=== PATIENT | female | born 1955 | race Hispanic/Latino ===

== ENCOUNTER 2019-05-27 12:29 | Emergency (ER) | payer BC, OTHER ==
[2019-05-27] MEDS ORDERED: SODIUM CHLORIDE 0.9% 1000ML 1,000 ML IV ONE (13:39)
[2019-05-27] MEDS ORDERED: KETOROLAC TROMETHAMINE 30MG/ML ONE (13:39)
[2019-05-27] MEDS ORDERED: ONDANSETRON HCL 4 MG/2 ML VIAL ONE (13:39)
[2019-05-27 13:48] LABS: BASOPHILS % (AUTO) 1.2 % (0.0-5.0); EOSINOPHILS % (AUTO) 0.7 % (0.0-8.0); HEMATOCRIT 43.1 % (36-48); LYMPHOCYTES % (AUTO) 11.8 % (21.0-51.0); MEAN CORPUSCULAR HEMOGLOBIN 31.6 pg (27.0-33.0); MEAN CORPUSCULAR HGB CONC 34.8 g/dL (32.0-36.0); MEAN CORPUSCULAR VOLUME 90.9 fL (79-99); MONOCYTES % (AUTO) 4.8 % (3.0-13.0); NEUTROPHILS % (AUTO) 81.5 % (40.0-77.0); NUCLEATED RED BLOOD CELLS 0.2 % (0.0-0.19); PLATELET COUNT (AUTO) 235 K/uL (130-400); RED BLOOD CELL COUNT(AUTO) 4.74 MIL/uL (4.00-5.50); WHITE BLOOD COUNT (AUTO) 11.3 K/uL (4.8-10.8)
[2019-05-27 13:55] LABS: CREATININE 1.1 mg/dL (0.5-1.5); POTASSIUM 4.1 mmol/L (3.5-5.1)
[2019-05-27 14:01] LABS: ALBUMIN 3.7 g/dL (3.5-5.0); BILIRUBIN,TOTAL 0.4 mg/dL (0.2-1.0); TOTAL PROTEIN, SERUM 7.4 g/dL (6.0-8.3)
[2019-05-27] MEDS ORDERED: IOHEXOL-350 75 ML VIAL IV ONE (14:17)
[2019-05-27 15:32] LABS: APPEARANCE,URINE Clear (CLEAR); BILIRUBIN,URINE Negative (NEGATIVE); COLOR,URINE Yellow (YELLOW); GLUCOSE, URINE (UA) Negative (NEGATIVE); KETONES,URINE Negative (NEGATIVE); LEUKOCYTE ESTERASE ,URINE Negative (NEGATIVE); NITRATE,URINE Negative (NEGATIVE); OCCULT BLOOD,URINE Negative (NEGATIVE); PH,URINE 5.5 (5.0-8.0); PROTEIN,URINE Negative (NEGATIVE); UROBILINOGEN,URINE 0.2 mg/dL (0.2-1.0)
== END 2019-05-27 16:56 | disposition home or self-care (01) ==
LOC: EDH 12:29
DX: K52.9 Noninfective gastroenteritis and colitis, unspecified (principal); E78.5 Hyperlipidemia, unspecified; I10 Essential (primary) hypertension; F32.9 Major depressive disorder, single episode, unspecified; Z90.49 Acquired absence of other specified parts of digestive tract; Z72.0 Tobacco use
CPT/HCPCS: 36415; 74177; 80053; 81003; 83690; 85025; 96361; 96374; 96375; 99285; J1885; J2405; J7030; Q9967

== ENCOUNTER 2020-11-17 17:48 | Inpatient (IN) | payer BC, OTHER ==
[~2020-11-17] VITALS: Ht 154.9 cm; Wt 79.8 kg
[2020-11-17 18:10] LABS: APPEARANCE,URINE Cloudy (CLEAR); BILIRUBIN,URINE Negative (NEGATIVE); COLOR,URINE Dark Yellow (YELLOW); GLUCOSE, URINE (UA) Negative (NEGATIVE); KETONES,URINE 15 mg/dL (NEGATIVE); LEUKOCYTE ESTERASE ,URINE Trace (NEGATIVE); NITRATE,URINE Negative (NEGATIVE); OCCULT BLOOD,URINE Trace (NEGATIVE); PH,URINE 5.5 (5.0-8.0); PROTEIN,URINE Trace mg/dL (NEGATIVE)
[2020-11-17 18:22] LABS: RBC,URINE 0-1 /HPF (0-1)
[2020-11-17 18:23] LABS: BACTERIA,URINE Few /HPF (None Seen); MUCUS,URINE Rare LPF (None Seen); SQUAMOUS EPITHELIAL CELL,UR Few /HPF (0-2)
[2020-11-17 18:30] LABS: BASOPHILS % (AUTO) 0.7 % (0.0-5.0); EOSINOPHILS % (AUTO) 0.1 % (0.0-8.0); LYMPHOCYTES % (AUTO) 6.5 % (21.0-51.0); MEAN CORPUSCULAR HEMOGLOBIN 30.4 pg (27.0-33.0); MEAN CORPUSCULAR HGB CONC 33.5 g/dL (32.0-36.0); MEAN CORPUSCULAR VOLUME 90.7 fL (79-99); MONOCYTES % (AUTO) 3.3 % (3.0-13.0); PLATELET COUNT (AUTO) 280 K/uL (130-400); RED BLOOD CELL COUNT(AUTO) 5.29 MIL/uL (4.00-5.50); RED CELL DISTRIBUTION WIDTH 13.1 % (11.0-15.5); WHITE BLOOD COUNT (AUTO) 12.3 K/uL (4.8-10.8)
[2020-11-17] MEDS ORDERED: ONDANSETRON 4MG INJ ONE ×2 (18:45→23:02)
[2020-11-17] MEDS ORDERED: MORPHINE 4 MG SYG ONE (18:45)
[2020-11-17 18:49] LABS: CREATININE 1.2 mg/dL (0.5-1.5); POTASSIUM 4.4 mmol/L (3.5-5.1)
[2020-11-17 18:54] LABS: ALBUMIN 4.1 g/dL (3.5-5.0); BILIRUBIN,TOTAL 0.5 mg/dL (0.2-1.0); TOTAL PROTEIN, SERUM 8.1 g/dL (6.0-8.3)
[2020-11-17] MEDS ORDERED: IOHEXOL-350 75 ML VIAL IV ONE (19:11)
[2020-11-17] MEDS ORDERED: HYDROMORPHONE 0.5 MG SYG (0.5MG/0.5ML) ONE (23:03)
[2020-11-17 23:40] VITALS: BP 118/74
[2020-11-18] VITALS (8 sets, daily range): BP systolic 132–169; BP diastolic 77–96
[2020-11-18] MEDS ORDERED: PRAV40TA3 PO (00:53)
[2020-11-18] MEDS ORDERED: BUPR-49 PO (00:53)
[2020-11-18] MEDS ORDERED: LISI5TAB21 PO (00:53)
[2020-11-18] MEDS ORDERED: OMEP-272 PO (00:53)
[2020-11-18] MEDS: 1/2 NS 1000ML 1,000 ML IV SCH ×5 (00:55→23:44)
[2020-11-18] MEDS: ONDANSETRON 4MG INJ IVP PRN ×4 (02:40→23:44)
[2020-11-18] MEDS: HYDROMORPHONE 1 MG INJ IVP PRN ×5 (03:15→23:45)
[2020-11-18 05:55] LABS: HEMATOCRIT 48.2 % (36-48); MEAN CORPUSCULAR HEMOGLOBIN 31.2 pg (27.0-33.0); MEAN CORPUSCULAR HGB CONC 34.6 g/dL (32.0-36.0); MEAN CORPUSCULAR VOLUME 89.9 fL (79-99); RED BLOOD CELL COUNT(AUTO) 5.36 MIL/uL (4.00-5.50); RED CELL DISTRIBUTION WIDTH 13.2 % (11.0-15.5); WHITE BLOOD COUNT (AUTO) 11.8 K/uL (4.8-10.8)
[2020-11-18 06:26] LABS: ALBUMIN 3.8 g/dL (3.5-5.0); BILIRUBIN,TOTAL 0.7 mg/dL (0.2-1.0); CREATININE 1.1 mg/dL (0.5-1.5); POTASSIUM 4.3 mmol/L (3.5-5.1); TOTAL PROTEIN, SERUM 7.8 g/dL (6.0-8.3)
[2020-11-18] MEDS: PANTOPRAZOLE 40 MG/VIAL IVP SCH (09:02)
[2020-11-18] MEDS: ENOXAPARIN SODIUM 40 MG/0.4 ML SYRINGE SQ SCH (09:04)
[2020-11-19 03:42] VITALS: BP 131/78
[2020-11-19 05:10] LABS: BASOPHILS % (AUTO) 0.4 % (0.0-5.0); EOSINOPHILS % (AUTO) 0.2 % (0.0-8.0); HEMATOCRIT 45.9 % (36-48); LYMPHOCYTES % (AUTO) 14.5 % (21.0-51.0); MEAN CORPUSCULAR HEMOGLOBIN 30.3 pg (27.0-33.0); MEAN CORPUSCULAR HGB CONC 33.8 g/dL (32.0-36.0); MEAN CORPUSCULAR VOLUME 89.8 fL (79-99); MONOCYTES % (AUTO) 7.2 % (3.0-13.0); NEUTROPHILS % (AUTO) 77.3 % (40.0-77.0); PLATELET COUNT (AUTO) 269 K/uL (130-400); RED BLOOD CELL COUNT(AUTO) 5.11 MIL/uL (4.00-5.50); RED CELL DISTRIBUTION WIDTH 13.4 % (11.0-15.5); WHITE BLOOD COUNT (AUTO) 15.8 K/uL (4.8-10.8)
[2020-11-19 05:25] LABS: ALBUMIN 3.3 g/dL (3.5-5.0); BILIRUBIN,TOTAL 0.8 mg/dL (0.2-1.0); CREATININE 1.1 mg/dL (0.5-1.5); POTASSIUM 3.6 mmol/L (3.5-5.1); TOTAL PROTEIN, SERUM 6.8 g/dL (6.0-8.3)
[2020-11-19] MEDS: ONDANSETRON 4MG INJ IVP PRN ×3 (05:36→18:58)
[2020-11-19] MEDS: HYDROMORPHONE 1 MG INJ IVP PRN ×2 (05:36→18:58)
[2020-11-19] MEDS ORDERED: LABETALOL 20MG SYG IV PRN (06:45)
[2020-11-19 08:07] VITALS: BP 141/75
[2020-11-19] MEDS: PANTOPRAZOLE 40 MG/VIAL IVP SCH (08:32)
[2020-11-19] MEDS: ENOXAPARIN SODIUM 40 MG/0.4 ML SYRINGE SQ SCH (08:34)
[2020-11-19] MEDS: 1/2 NS 1000ML 1,000 ML IV SCH ×2 (08:34→22:54)
[2020-11-19 11:05] VITALS: BP 134/75
[2020-11-19] MEDS ORDERED: BENZOCAINE 20% 57 GM SPRAY TP SCH (14:30)
[2020-11-19] MEDS ORDERED: BENZOCAINE 20% 57 GM SPRAY TP PRN (14:30)
[2020-11-19 16:15] VITALS: BP 139/76
[2020-11-19 16:52] LABS: INR 0.94 (0.85-1.15); PROTHROMBIN TIME 10.3 SEC (9.6-11.6)
[2020-11-19 16:53] LABS: PARTIAL THROMBOPLASTIN TIME 27.9 SEC (26.3-35.5)
[2020-11-19 20:00] VITALS: BP 140/81
[2020-11-19 23:30] VITALS: BP 136/84
[2020-11-20] MEDS: PROMETHAZINE HCL 25 MG/ML 1ML AMPULE IM PRN ×2 (00:31→06:34)
[2020-11-20] MEDS: HYDROMORPHONE 1 MG INJ IVP PRN (00:31)
[2020-11-20 03:55] VITALS: BP 135/84
[2020-11-20 05:07] LABS: BASOPHILS % (AUTO) 0.3 % (0.0-5.0); EOSINOPHILS % (AUTO) 0.1 % (0.0-8.0); HEMATOCRIT 45.5 % (36-48); LYMPHOCYTES % (AUTO) 11.9 % (21.0-51.0); MEAN CORPUSCULAR HEMOGLOBIN 30.8 pg (27.0-33.0); MEAN CORPUSCULAR HGB CONC 34.5 g/dL (32.0-36.0); MEAN CORPUSCULAR VOLUME 89.2 fL (79-99); MONOCYTES % (AUTO) 6.8 % (3.0-13.0); NEUTROPHILS % (AUTO) 80.3 % (40.0-77.0); PLATELET COUNT (AUTO) 276 K/uL (130-400); RED CELL DISTRIBUTION WIDTH 13.2 % (11.0-15.5); WHITE BLOOD COUNT (AUTO) 15.7 K/uL (4.8-10.8)
[2020-11-20 05:19] LABS: CREATININE 1.2 mg/dL (0.5-1.5); POTASSIUM 3.6 mmol/L (3.5-5.1)
[2020-11-20] MEDS: 1/2 NS 1000ML 1,000 ML IV SCH ×3 (05:55→23:00)
[2020-11-20 07:54] VITALS: BP 131/86
[2020-11-20] MEDS: ENOXAPARIN SODIUM 40 MG/0.4 ML SYRINGE SQ SCH (08:56)
[2020-11-20] MEDS: PANTOPRAZOLE 40 MG/VIAL IVP SCH (08:56)
[2020-11-20] MEDS: ONDANSETRON 4MG INJ IVP PRN ×2 (09:06→20:29)
[2020-11-20] MEDS: PHARMACY COMMUNICATION MISC SCH ×7 (11:00→17:47)
[2020-11-20 11:32] VITALS: BP 139/82
[2020-11-20] MEDS ORDERED: DIATR MEGLU/DIATRIZOATE SODIUM 30 ML BOTTLE ONE ×2 (11:54)
[2020-11-20 16:30] VITALS: BP 139/81
[2020-11-20 20:29] VITALS: BP 128/92
[2020-11-21] VITALS (7 sets, daily range): BP systolic 110–145; BP diastolic 70–97
[2020-11-21] MEDS: HYDROMORPHONE 1 MG INJ IVP PRN ×2 (00:55→21:14)
[2020-11-21] MEDS: 1/2 NS 1000ML 1,000 ML IV SCH ×4 (01:08→23:00)
[2020-11-21 05:53] LABS: BASOPHILS % (AUTO) 0.2 % (0.0-5.0); EOSINOPHILS % (AUTO) 0.3 % (0.0-8.0); HEMATOCRIT 45.5 % (36-48); LYMPHOCYTES % (AUTO) 8.3 % (21.0-51.0); MEAN CORPUSCULAR HEMOGLOBIN 30.4 pg (27.0-33.0); MEAN CORPUSCULAR HGB CONC 34.7 g/dL (32.0-36.0); MEAN CORPUSCULAR VOLUME 87.7 fL (79-99); MONOCYTES % (AUTO) 8.9 % (3.0-13.0); NEUTROPHILS % (AUTO) 81.7 % (40.0-77.0); PLATELET COUNT (AUTO) 289 K/uL (130-400); RED BLOOD CELL COUNT(AUTO) 5.19 MIL/uL (4.00-5.50); RED CELL DISTRIBUTION WIDTH 13.2 % (11.0-15.5); WHITE BLOOD COUNT (AUTO) 16.9 K/uL (4.8-10.8)
[2020-11-21 06:07] LABS: INR 0.94 (0.85-1.15); PROTHROMBIN TIME 10.3 SEC (9.6-11.6)
[2020-11-21 06:08] LABS: CREATININE 1.7 mg/dL (0.5-1.5); POTASSIUM 3.4 mmol/L (3.5-5.1)
[2020-11-21] MEDS ORDERED: POTASSIUM CHLORIDE 20MEQ/100ML 100 ML IV ONE (06:54)
[2020-11-21] MEDS ORDERED: LIDOCAINE HCL-MPF 1% 2ML VIAL ONE (06:54)
[2020-11-21] MEDS ORDERED: LIDOCAINE HCL-MPF 1% 2ML VIAL IV PRN (07:00)
[2020-11-21] MEDS: PANTOPRAZOLE 40 MG/VIAL IVP SCH (08:46)
[2020-11-21] MEDS: ONDANSETRON 4MG INJ IVP PRN (08:46)
[2020-11-21] MEDS: ENOXAPARIN SODIUM 40 MG/0.4 ML SYRINGE SQ SCH (08:47)
[2020-11-21] MEDS ORDERED: M.V.I. IV [ADULT] 10 ML in CLINIMIX-E 5%AA /D15%W 2000ML 2,000 ML IV SCH (18:00)
[2020-11-21] MEDS ORDERED: M.V.I. IV [ADULT] 10 ML, MULTITRACE-4 ADULT 10ML VIAL 3 ML in CLINIMIX-E 5%AA /D15%W 2... IV SCH (18:00)
[2020-11-21] MEDS: FAT EMULSIONS 20% 250ML 250 ML IV SCH (21:14)
[2020-11-22 03:59] VITALS: BP 146/79
[2020-11-22 05:39] LABS: HEMATOCRIT 41.3 % (36-48); MEAN CORPUSCULAR HEMOGLOBIN 31.4 pg (27.0-33.0); MEAN CORPUSCULAR HGB CONC 35.8 g/dL (32.0-36.0); MEAN CORPUSCULAR VOLUME 87.5 fL (79-99); RED BLOOD CELL COUNT(AUTO) 4.72 MIL/uL (4.00-5.50); RED CELL DISTRIBUTION WIDTH 12.9 % (11.0-15.5); WHITE BLOOD COUNT (AUTO) 13.7 K/uL (4.8-10.8)
[2020-11-22 06:04] LABS: ALBUMIN 2.7 g/dL (3.5-5.0); BILIRUBIN,TOTAL 0.6 mg/dL (0.2-1.0); CREATININE 1.2 mg/dL (0.5-1.5); MAGNESIUM 2.6 mg/dL (1.80-2.40); PHOSPHORUS 2.4 mg/dL (2.5-4.9); POTASSIUM 3.1 mmol/L (3.5-5.1); TOTAL PROTEIN, SERUM 6.4 g/dL (6.0-8.3)
[2020-11-22] MEDS: 1/2 NS 1000ML 1,000 ML IV SCH ×2 (06:36→17:57)
[2020-11-22] MEDS: ONDANSETRON 4MG INJ IVP PRN ×3 (06:38→17:39)
[2020-11-22] MEDS: HYDROMORPHONE 1 MG INJ IVP PRN ×2 (06:38→20:31)
[2020-11-22 07:50] VITALS: BP 120/70
[2020-11-22] MEDS ORDERED: IOHEXOL-350 75 ML VIAL IV ONE (08:26)
[2020-11-22] MEDS: LEVOFLOXACIN 500 MG/D5W 100 ML 100 ML IV SCH (09:48)
[2020-11-22] MEDS: PANTOPRAZOLE 40 MG/VIAL IVP SCH (09:48)
[2020-11-22] MEDS: ENOXAPARIN SODIUM 40 MG/0.4 ML SYRINGE SQ SCH (10:07)
[2020-11-22 12:00] VITALS: BP 106/77
[2020-11-22] MEDS: PROMETHAZINE HCL 25 MG/ML 1ML AMPULE IM PRN (13:29)
[2020-11-22 16:00] VITALS: BP 115/56
[2020-11-22] MEDS: POTASSIUM CHLORIDE 20MEQ/100ML 100 ML IV PRN ×2 (16:19→17:57)
[2020-11-22] MEDS ORDERED: M.V.I. IV [ADULT] 10 ML in CLINIMIX-E 5%AA /D15%W 2000ML 2,000 ML IV SCH (17:45)
[2020-11-22 18:42] LABS: APPEARANCE,URINE CLOUDY (CLEAR); BILIRUBIN,URINE NEGATIVE (NEGATIVE); COLOR,URINE YELLOW (YELLOW); GLUCOSE, URINE (UA) NEGATIVE (NEGATIVE); KETONES,URINE NEGATIVE (NEGATIVE); LEUKOCYTE ESTERASE ,URINE NEGATIVE (NEGATIVE); NITRATE,URINE NEGATIVE (NEGATIVE); OCCULT BLOOD,URINE NEGATIVE (NEGATIVE); PROTEIN,URINE TRACE mg/dL (NEGATIVE); UROBILINOGEN,URINE 0.2 mg/dL (0.2-1.0)
[2020-11-22 18:50] LABS: BACTERIA,URINE Few /HPF (None Seen); RBC,URINE 0-1 /HPF (0-1); SQUAMOUS EPITHELIAL CELL,UR Few /HPF (0-2); WBC,URINE 0-1 /HPF (0-1)
[2020-11-22 20:00] VITALS: BP 116/74
[2020-11-23] VITALS (29 sets, daily range): BP systolic 101–160; BP diastolic 59–96
[2020-11-23] MEDS: ONDANSETRON 4MG INJ IVP PRN ×2 (00:53→22:18)
[2020-11-23] MEDS ORDERED: LACTATED RINGERS 1000ML 1,000 ML IV ONE (07:54)
[2020-11-23] MEDS: LEVOFLOXACIN 500 MG/D5W 100 ML 100 ML IV SCH (07:59)
[2020-11-23] MEDS ORDERED: PROPOFOL 10 MG/ML 20ML VIAL IV ONE (08:11)
[2020-11-23] MEDS ORDERED: MIDAZOLAM HCL 1 MG/ML 2ML VIAL ONE (08:11)
[2020-11-23] MEDS ORDERED: FENTANYL CITRATE PF 50 MCG/1 ML 2ML VIAL ONE (08:12)
[2020-11-23] MEDS ORDERED: PHENYLEPHRINE HCL 10 MG/ML 1ML VIAL IV ONE (08:22)
[2020-11-23] MEDS: ENOXAPARIN SODIUM 40 MG/0.4 ML SYRINGE SQ SCH (09:00)
[2020-11-23] MEDS ORDERED: SUGAMMADEX SODIUM 200 MG/2 ML VIAL IV ONE (09:10)
[2020-11-23] MEDS ORDERED: MEPERIDINE-PF 25 MG/ML SYG ONE ×3 (09:13→09:53)
[2020-11-23] MEDS ORDERED: KETOROLAC 30MG VIAL (30MG/ML) ONE ×2 (09:57→14:23)
[2020-11-23] MEDS ORDERED: MORPHINE 2 MG SYG ONE (10:05)
[2020-11-23] MEDS ORDERED: MORPHINE 4 MG SYG IV PRN (11:15)
[2020-11-23] MEDS: PANTOPRAZOLE 40 MG/VIAL IVP SCH (11:37)
[2020-11-23] MEDS: MORPHINE 4 MG SYG IV PRN ×3 (11:50→22:18)
[2020-11-23] MEDS: FAT EMULSIONS 20% 250ML 250 ML IV SCH (16:36)
[2020-11-23] MEDS: LACTATED RINGERS 1000ML 1,000 ML IV SCH ×2 (16:40→23:30)
[2020-11-24] MEDS: LACTATED RINGERS 1000ML 1,000 ML IV SCH ×3 (00:55→23:29)
[2020-11-24] MEDS: POTASSIUM CHLORIDE 20MEQ/100ML 100 ML IV PRN ×2 (02:54→05:08)
[2020-11-24] MEDS: MORPHINE 4 MG SYG IV PRN ×3 (03:06→16:49)
[2020-11-24 03:33] VITALS: BP 116/63
[2020-11-24 05:23] LABS: BASOPHILS % (AUTO) 0.3 % (0.0-5.0); EOSINOPHILS % (AUTO) 1.9 % (0.0-8.0); HEMATOCRIT 36.3 % (36-48); LYMPHOCYTES % (AUTO) 7.8 % (21.0-51.0); MEAN CORPUSCULAR HEMOGLOBIN 30.3 pg (27.0-33.0); MEAN CORPUSCULAR HGB CONC 33.6 g/dL (32.0-36.0); MEAN CORPUSCULAR VOLUME 90.1 fL (79-99); MONOCYTES % (AUTO) 8.3 % (3.0-13.0); NEUTROPHILS % (AUTO) 80.9 % (40.0-77.0); PLATELET COUNT (AUTO) 219 K/uL (130-400); RED BLOOD CELL COUNT(AUTO) 4.03 MIL/uL (4.00-5.50); RED CELL DISTRIBUTION WIDTH 13.2 % (11.0-15.5); WHITE BLOOD COUNT (AUTO) 11.4 K/uL (4.8-10.8)
[2020-11-24 05:41] LABS: ALBUMIN 1.8 g/dL (3.5-5.0); BILIRUBIN,TOTAL 0.9 mg/dL (0.2-1.0); POTASSIUM 5.3 mmol/L (3.5-5.1)
[2020-11-24] MEDS: KETOROLAC 30MG VIAL (30MG/ML) IV PRN ×3 (06:18→21:14)
[2020-11-24 07:14] VITALS: BP 112/70
[2020-11-24] MEDS: ENOXAPARIN SODIUM 40 MG/0.4 ML SYRINGE SQ SCH (09:00)
[2020-11-24] MEDS: PANTOPRAZOLE 40 MG/VIAL IVP SCH (10:08)
[2020-11-24] MEDS: LEVOFLOXACIN 500 MG/D5W 100 ML 100 ML IV SCH (10:08)
[2020-11-24 10:55] VITALS: BP 115/58
[2020-11-24 15:46] VITALS: BP 115/75
[2020-11-24] MEDS ORDERED: M.V.I. IV [ADULT] 10 ML in CLINIMIX-E 5%AA /D15%W 2000ML 2,000 ML IV NR ×2 (17:30→21:00)
[2020-11-24 19:52] VITALS: BP 120/66
[2020-11-24 23:52] VITALS: BP 122/62
[2020-11-25] MEDS: MORPHINE 4 MG SYG IV PRN ×3 (01:28→17:02)
[2020-11-25 04:52] VITALS: BP 128/50
[2020-11-25] MEDS: LACTATED RINGERS 1000ML 1,000 ML IV SCH ×2 (05:54→17:19)
[2020-11-25 06:00] LABS: HEMATOCRIT 31.5 % (36-48); MEAN CORPUSCULAR HEMOGLOBIN 31.1 pg (27.0-33.0); MEAN CORPUSCULAR HGB CONC 34.3 g/dL (32.0-36.0); MEAN CORPUSCULAR VOLUME 90.8 fL (79-99); RED BLOOD CELL COUNT(AUTO) 3.47 MIL/uL (4.00-5.50); RED CELL DISTRIBUTION WIDTH 13.2 % (11.0-15.5); WHITE BLOOD COUNT (AUTO) 10.7 K/uL (4.8-10.8)
[2020-11-25 06:17] LABS: CREATININE 0.9 mg/dL (0.5-1.5); POTASSIUM 4.3 mmol/L (3.5-5.1)
[2020-11-25 08:05] VITALS: BP 130/78
[2020-11-25] MEDS: PANTOPRAZOLE 40 MG/VIAL IVP SCH (09:56)
[2020-11-25] MEDS: LEVOFLOXACIN 500 MG/D5W 100 ML 100 ML IV SCH (09:56)
[2020-11-25] MEDS: ENOXAPARIN SODIUM 40 MG/0.4 ML SYRINGE SQ SCH (09:57)
[2020-11-25] MEDS: KETOROLAC 30MG VIAL (30MG/ML) IV PRN (09:58)
[2020-11-25 11:25] VITALS: BP 116/60
[2020-11-25 16:25] VITALS: BP 126/68
[2020-11-25] MEDS: ONDANSETRON 4MG INJ IVP PRN (17:01)
[2020-11-25] MEDS ORDERED: M.V.I. IV [ADULT] 10 ML in CLINIMIX-E 5%AA /D15%W 2000ML 2,000 ML IV NR (19:15)
[2020-11-25 20:32] VITALS: BP 161/71
[2020-11-25] MEDS: PROMETHAZINE HCL 25 MG/ML 1ML AMPULE IM PRN (21:59)
[2020-11-26] MEDS: ONDANSETRON 4MG INJ IVP PRN ×3 (00:34→18:13)
[2020-11-26] MEDS: MORPHINE 4 MG SYG IV PRN ×3 (00:35→21:59)
[2020-11-26 00:44] VITALS: BP 158/87
[2020-11-26] MEDS: LACTATED RINGERS 1000ML 1,000 ML IV SCH ×3 (00:44→23:30)
[2020-11-26 04:41] VITALS: BP 114/60
[2020-11-26 05:16] LABS: HEMATOCRIT 31.2 % (36-48); MEAN CORPUSCULAR HEMOGLOBIN 30.9 pg (27.0-33.0); RED BLOOD CELL COUNT(AUTO) 3.43 MIL/uL (4.00-5.50); RED CELL DISTRIBUTION WIDTH 13.2 % (11.0-15.5)
[2020-11-26 05:24] LABS: CREATININE 0.9 mg/dL (0.5-1.5); POTASSIUM 4.5 mmol/L (3.5-5.1)
[2020-11-26 07:30] VITALS: BP 139/74
[2020-11-26] MEDS: ENOXAPARIN SODIUM 40 MG/0.4 ML SYRINGE SQ SCH (09:00)
[2020-11-26] MEDS: LEVOFLOXACIN 500 MG/D5W 100 ML 100 ML IV SCH (09:39)
[2020-11-26] MEDS: FAT EMULSIONS 20% 250ML 250 ML IV SCH (09:41)
[2020-11-26] MEDS: PANTOPRAZOLE 40 MG/VIAL IVP SCH (09:41)
[2020-11-26 11:00] VITALS: BP 120/70
[2020-11-26 16:00] VITALS: BP 143/69
[2020-11-26 19:15] VITALS: BP 154/72
[2020-11-26] MEDS ORDERED: M.V.I. IV [ADULT] 10 ML in CLINIMIX-E 5%AA /D15%W 2000ML 2,000 ML IV ONE (19:15)
[2020-11-26] MEDS ORDERED: M.V.I. IV [ADULT] 10 ML in CLINIMIX-E 5%AA /D15%W 2000ML 2,000 ML IV SCH (21:00)
[2020-11-27] VITALS (7 sets, daily range): BP systolic 110–169; BP diastolic 65–83
[2020-11-27] MEDS: LACTATED RINGERS 1000ML 1,000 ML IV SCH ×4 (00:47→23:30)
[2020-11-27 05:32] LABS: BASOPHILS % (AUTO) 0.4 % (0.0-5.0); EOSINOPHILS % (AUTO) 4.1 % (0.0-8.0); HEMATOCRIT 31.4 % (36-48); LYMPHOCYTES % (AUTO) 18.1 % (21.0-51.0); MEAN CORPUSCULAR HEMOGLOBIN 29.7 pg (27.0-33.0); MEAN CORPUSCULAR HGB CONC 32.5 g/dL (32.0-36.0); MEAN CORPUSCULAR VOLUME 91.3 fL (79-99); MONOCYTES % (AUTO) 13.8 % (3.0-13.0); NEUTROPHILS % (AUTO) 59.5 % (40.0-77.0); PLATELET COUNT (AUTO) 257 K/uL (130-400); RED BLOOD CELL COUNT(AUTO) 3.44 MIL/uL (4.00-5.50); RED CELL DISTRIBUTION WIDTH 13.2 % (11.0-15.5); WHITE BLOOD COUNT (AUTO) 7.2 K/uL (4.8-10.8)
[2020-11-27 05:56] LABS: ALBUMIN 1.6 g/dL (3.5-5.0); BILIRUBIN,TOTAL 0.7 mg/dL (0.2-1.0); CREATININE 0.9 mg/dL (0.5-1.5); MAGNESIUM 3.5 mg/dL (1.80-2.40); PHOSPHORUS 4.3 mg/dL (2.5-4.9); POTASSIUM 4.4 mmol/L (3.5-5.1); TOTAL PROTEIN, SERUM 5.3 g/dL (6.0-8.3)
[2020-11-27] MEDS: PANTOPRAZOLE 40 MG/VIAL IVP SCH (09:47)
[2020-11-27] MEDS: LEVOFLOXACIN 500 MG/D5W 100 ML 100 ML IV SCH (09:47)
[2020-11-27] MEDS: ENOXAPARIN SODIUM 40 MG/0.4 ML SYRINGE SQ SCH (09:47)
[2020-11-27] MEDS: PROMETHAZINE HCL 25 MG/ML 1ML AMPULE IM PRN (16:14)
[2020-11-27] MEDS ORDERED: M.V.I. IV [ADULT] 10 ML in CLINIMIX-E 5%AA /D15%W 2000ML 2,000 ML IV SCH (18:45)
[2020-11-27] MEDS: KETOROLAC 30MG VIAL (30MG/ML) IV PRN (19:59)
[2020-11-27] MEDS: ONDANSETRON 4MG INJ IVP PRN (23:20)
[2020-11-28] MEDS: LACTATED RINGERS 1000ML 1,000 ML IV SCH ×2 (00:30→07:48)
[2020-11-28 03:31] VITALS: BP 127/74
[2020-11-28 06:00] LABS: CHOLESTEROL 99 mg/dL (<200); HDL CHOLESTEROL 73 mg/dL (35-85); LDL DIRECT 57 mg/dL (0-99); TRIGLYCERIDES 104 mg/dL (30-200)
[2020-11-28] MEDS ORDERED: BISACODYL 10 MG SUPP.RECT RC SCH (08:00)
[2020-11-28] MEDS: LEVOFLOXACIN 500 MG/D5W 100 ML 100 ML IV SCH (08:16)
[2020-11-28] MEDS: PANTOPRAZOLE 40 MG/VIAL IVP SCH (08:18)
[2020-11-28] MEDS: ENOXAPARIN SODIUM 40 MG/0.4 ML SYRINGE SQ SCH (08:18)
[2020-11-28 08:43] VITALS: BP 121/77
[2020-11-28] MEDS: FAT EMULSIONS 20% 250ML 250 ML IV SCH (10:00)
[2020-11-28 11:00] VITALS: BP 128/79
[2020-11-28 17:03] VITALS: BP 147/84
[2020-11-28] MEDS: ONDANSETRON 4MG INJ IVP PRN (19:02)
[2020-11-28 19:50] VITALS: BP 137/81
[2020-11-28 23:28] VITALS: BP 134/72
[2020-11-29 03:42] VITALS: BP 131/78
[2020-11-29 07:11] VITALS: BP 121/70
[2020-11-29] MEDS: LACTATED RINGERS 1000ML 1,000 ML IV SCH ×2 (07:30→15:36)
[2020-11-29] MEDS: PANTOPRAZOLE 40 MG/VIAL IVP SCH (08:41)
[2020-11-29] MEDS: LEVOFLOXACIN 500 MG/D5W 100 ML 100 ML IV SCH (08:41)
[2020-11-29] MEDS: ENOXAPARIN SODIUM 40 MG/0.4 ML SYRINGE SQ SCH (08:41)
[2020-11-29 11:12] VITALS: BP 131/80
[2020-11-29 15:25] VITALS: BP 110/64
[2020-11-29 20:00] VITALS: BP 132/78
[2020-11-29 23:50] VITALS: BP 126/71
[2020-11-30 03:54] VITALS: BP 131/77
[2020-11-30 07:30] VITALS: BP 122/74
[2020-11-30] MEDS: FAT EMULSIONS 20% 250ML 250 ML IV SCH (08:32)
[2020-11-30] MEDS: LEVOFLOXACIN 500 MG/D5W 100 ML 100 ML IV SCH (10:38)
[2020-11-30] MEDS: PANTOPRAZOLE 40 MG/VIAL IVP SCH (10:38)
[2020-11-30] MEDS: ENOXAPARIN SODIUM 40 MG/0.4 ML SYRINGE SQ SCH (10:39)
[2020-11-30 12:25] VITALS: BP 131/78
[2020-11-30] MEDS ORDERED: ZOFRAN (15:30)
== END 2020-11-30 16:19 | disposition home or self-care (01) | DRG 352 ==
LOC: EDH 17:48 → EDHIP 21:56 → 3CH 22:53 → 3BH 11-21 17:02
PROVIDERS: ADMIT Internal Medicine; ATTEND Internal Medicine
PROC: 0D9670Z Drainage of Stomach with Drainage Device, Via Natural or Artificial Opening (ICD-10-PCS; 2020-11-18)
PROC: 02HV33Z Insertion of Infusion Device into Superior Vena Cava, Percutaneous Approach (ICD-10-PCS; 2020-11-18)
PROC: 0YQ70ZZ Repair Right Femoral Region, Open Approach (ICD-10-PCS; principal; 2020-11-23 08:21)
DX: K41.30 Unilateral femoral hernia, with obstruction, without gangrene, not specified as recurrent (principal); Z87.891 Personal history of nicotine dependence; I10 Essential (primary) hypertension; Z90.49 Acquired absence of other specified parts of digestive tract; F41.9 Anxiety disorder, unspecified; F32.9 Major depressive disorder, single episode, unspecified; E03.9 Hypothyroidism, unspecified; D72.829 Elevated white blood cell count, unspecified; E87.6 Hypokalemia
CPT/HCPCS: 36415; 74018; 74177; 74250; 80048; 80053; 80061; 81001; 83690; 83735; 84100; 84484; 85025; 85027; 85610; 85730; 87088; 93005; 97039; A4344; C9113; G0378; J1170; J1650; J1885; J1956; J2175; J2250; J2270; J2370; J2405; J2550; J2704; J3010; J3480; J3490; J7030; J7120; Q9963; Q9967